=== PATIENT | female | born 1930 | race Caucasian/White ===

== ENCOUNTER 2016-09-04 15:44 | Outpatient (CLI) | payer MEDICARE, OTHER | END 2016-09-04 15:45 | disposition critical access hospital (66) | DX: R06.02 Shortness of breath (principal) | CPT/HCPCS: A0425; A0427 ==

== ENCOUNTER 2016-09-04 16:01 | Emergency (ER) | payer MEDICARE, OTHER ==
[2016-09-04] MEDS ORDERED: FUROSEMIDE 20 MG TABLET PO STA (17:19)
[2016-09-04] MEDS ORDERED: FUROSEMIDE 20 MG TABLET ONE (17:22)
== END 2016-09-04 17:46 | disposition home or self-care (01) ==
DX: I11.0 Hypertensive heart disease with heart failure (principal); I50.9 Heart failure, unspecified; I48.2 Chronic atrial fibrillation; Z79.01 Long term (current) use of anticoagulants; Z79.82 Long term (current) use of aspirin; I87.8 Other specified disorders of veins; I25.2 Old myocardial infarction; Z95.1 Presence of aortocoronary bypass graft; E11.9 Type 2 diabetes mellitus without complications; J44.9 Chronic obstructive pulmonary disease, unspecified
CPT/HCPCS: 36415; 71010; 80053; 83690; 83880; 84484; 85025; 85610; 93005; 93010; 99284; A9270

== ENCOUNTER 2016-10-06 14:29 | Outpatient (CLI) | payer MEDICARE, OTHER | END 2016-10-06 14:30 | disposition home or self-care (01) | DX: I50.9 Heart failure, unspecified (principal); I48.2 Chronic atrial fibrillation ==

== ENCOUNTER 2016-10-07 14:59 | Outpatient (CLI) | payer MEDICARE, OTHER | END 2016-10-07 15:00 | disposition short-term general hospital (02) | DX: R06.02 Shortness of breath (principal); R11.0 Nausea | CPT/HCPCS: A0425; A0427; A0888 ==

== ENCOUNTER 2016-12-10 20:48 | Outpatient (CLI) | payer MEDICARE, OTHER | END 2016-12-10 20:49 | disposition short-term general hospital (02) | LOC: EMS 20:48 | PROVIDERS: ATTEND Surgery | DX: R11.2 Nausea with vomiting, unspecified (principal); R19.7 Diarrhea, unspecified | CPT/HCPCS: A0425; A0429 ==

== ENCOUNTER 2016-12-22 10:39 | Outpatient (CLI) | payer MEDICARE, OTHER ==
--- NOTE | 2016-12-23 10:24 | XRAY Report ---
CHEST PA AND LATERAL: 12/22/2016 CLINICAL HISTORY: Congestive heart failure. FINDINGS: Sternal wire sutures are noted. Anterior spurring is seen in the thoracic spine with mild kyphosis. Mild cardiomegaly is noted with vascular calcification in the aortic arch. Mediastinum is not widened. Because of patient's kyphosis, patient's chin overlies a portion of the superior mediastinum and medial aspect of each lung apex. Bilateral pleural effusions are noted. Right pleural effusion is of small to moderate size. The left pleural effusion is a small pleural effusion. No significant interstitial edema is noted in the lung bowman. As compared to preceding exam dated 09/04/2016, the amount of pleural fluid present appears increased bilaterally. The pleural effusions most likely represent congestive heart failure. Secondary considerations would be renal disease or collagen vascular disease. IMPRESSION: MODERATE DEGREE OF CARDIOMEGALY WITH STERNAL WIRE SUTURES. MODERATE SIZE RIGHT PLEURAL EFFUSION AND A SMALL LEFT PLEURAL EFFUSION IS NOTED. THESE PLEURAL EFFUSIONS HAVE INCREASED SINCE 09/04/2016 AND MOST LIKELY ARE RESULT OF CONGESTIVE HEART FAILURE. ADDENDUM FINDINGS: The patient's recent chest x-ray from [facility] in [place], [place], dated 12/11/2016 has been obtained for comparison with present study. No dramatic change is detected between the present exam and the exam taken at [facility], considering the difference in technique. The exam done at [facility] was an AP portable upright chest versus a PA upright chest today. On the AP portable chest from [facility], the patient showed a moderate size right pleural effusion and a small left pleural effusion. The patient's pleural effusions appear mildly accentuated today as compared to the preceding exam. This accentuation, however, is probably related to a difference in technique rather than a real change. Heart size remains unchanged with a moderate degree of cardiomegaly still noted. This addendum is being faxed to Dr. Huang on 12/22/2016 at 1:35 p.m. JOB #: [id number] EXT JOB #: [id number] [facility] SHOREJeffery
== END 2016-12-22 10:40 | disposition home or self-care (01) ==
LOC: DI 10:39
PROVIDERS: ATTEND Internal Medicine
DX: I50.9 Heart failure, unspecified (principal); I48.91 Unspecified atrial fibrillation; Z79.01 Long term (current) use of anticoagulants; I51.7 Cardiomegaly; J90 Pleural effusion, not elsewhere classified
CPT/HCPCS: 71020; 85610

== ENCOUNTER 2017-01-09 15:40 | Outpatient (CLI) | payer MEDICARE, OTHER | END 2017-01-09 15:41 | disposition short-term general hospital (02) | LOC: EMS 15:40 | PROVIDERS: ATTEND Surgery | DX: R19.7 Diarrhea, unspecified (principal) | CPT/HCPCS: A0425; A0429; A0888 ==

== ENCOUNTER 2017-02-04 11:12 | Outpatient (CLI) | payer MEDICARE, OTHER | END 2017-02-04 11:13 | disposition critical access hospital (66) | LOC: EMS 11:12 | PROVIDERS: ATTEND Surgery | DX: R40.20 Unspecified coma (principal); R06.00 Dyspnea, unspecified | CPT/HCPCS: A0425; A0427 ==

== ENCOUNTER 2017-02-04 11:29 | Inpatient (IN) | payer MEDICARE, OTHER ==
[2017-02-04] MEDS ORDERED: GLUCAGON 1 MG/ML VIAL IVP ONE (11:36)
[2017-02-04] MEDS ORDERED: SODIUM CHLORIDE 0.9% 1,000 ML IV ONE (11:36)
[2017-02-04] MEDS ORDERED: CALCIUM CHLORIDE ABBOJECT 1000MG/10 ML SYRINGE IVP ONE (11:38)
[2017-02-04] MEDS ORDERED: CALCIUM CHLORIDE ABBOJECT 1000MG/10 ML SYRINGE ONE (11:40)
[2017-02-04] MEDS ORDERED: GLUCAGON 1 MG/ML VIAL ONE (11:40)
[2017-02-04] MEDS ORDERED: CALCIUM GLUCONATE 1000 MG/10 ML VIAL ONE (11:40)
[2017-02-04] MEDS ORDERED: SODIUM BICARBONATE ABBOJECT 50 MEQ/50 ML SYRINGE IVP ONE (11:42)
[2017-02-04] MEDS ORDERED: SODIUM BICARBONATE ABBOJECT 50 MEQ/50 ML SYRINGE ONE (11:46)
[2017-02-04] MEDS ORDERED: SODIUM CHLORIDE INHALATION 3 ML NEB ONE (11:49)
[2017-02-04] MEDS ORDERED: LEVALBUTEROL 1.25 MG INH ONE (11:49)
[2017-02-04] MEDS ORDERED: DEXTROSE 50% ABBOJECT 25 GM/50 ML SYRINGE IVP ONE (11:53)
[2017-02-04] MEDS ORDERED: SODIUM CHLORIDE FLUSH 0.9% 10 ML SYRINGE IVP ONE ×2 (11:54→13:26)
[2017-02-04] MEDS ORDERED: DEXTROSE 50% ABBOJECT 25 GM/50 ML SYRINGE ONE (11:54)
[2017-02-04] MEDS ORDERED: INSULIN REGULAR HUMAN 100 UNIT/1 ML 10 ML MDV ONE (11:54)
[2017-02-04] MEDS ORDERED: INSULIN REGULAR HUMAN 100 UNIT/1 ML 10 ML MDV IVP STA (11:54)
--- NOTE | 2017-02-04 11:57 | ED Physician Documentation ---
History of Present Illness - Stated complaint Stated Complaint: SOA/SYNCOPE - Chief complaint Chief Complaint: Resp - Additonal information Additional information: She is a 86-year-old female in assisted living center. EMS got called out for dyspnea and arrived to find this patient in distress. Her blood glucose was low in the 40s her heart rate was also in the 40s and she appeared to be in respiratory distress. She had altered mental status at that time and appeared to be obviously hypo perfusing in appearance. They give her IV dextrose with some improvement in her mentation. She was also given IV fluids as a bolus and was placed on subcutaneous pacing. The patient here is arousable and is not complaining of anything. She is lethargic and demonstrates moving her arms and legs equally. She does appear to be hypoperfusing here and is bradycardic. We have continued the pacemaker. Looking at her medications she is on double dexter blocking medications with diltiazem and metoprolol. She is also on Coumadin for atrial fibrillation. The patient denies a headache, chest pain, shortness of breath or any other complaints although her mentation is somewhat depressed. Review of systems: For pertinent positive and negatives in the review of systems please see the history of present illness, otherwise all other systems have been reviewed and are negative. Dragon disclaimer: Parts of this medical record were created using voice recognition technology. Because of the inherent limitations of this system, occasional same sounding word substitutions do occur and persist despite proofreading. Please read the document for context. PD PAST MEDICAL HISTORY - Past Medical History Cardiovascular: Congestive heart failure, Hypertension, [place], Atrial fibrillation Respiratory: COPD, Pneumonia, Sleep apnea, CPAP use Neuro: None Endocrine/Autoimmune: Type 2 diabetes GI: GI bleed, C.difficile : Frequency HEENT: None Psych: None Musculoskeletal: Osteoarthritis Derm: Herpes zoster, Psoriasis - Past Surgical History Past Surgical History: Yes Ortho: Other /INTERNET WE[employer]STER: Hysterectomy Cardiovascular: CABG HEENT: Cataracts - Present Medications Home Medications: Ambulatory Orders Medication Instructions Recorded Confirmed Aspirin [Children's Aspirin] 81 mg PO DAILY 12/25/14 02/04/17 Furosemide [Lasix] 40 mg PO DAILY 12/25/14 02/04/17 Metoprolol Tartrate 200 mg PO BID 12/25/14 02/04/17 Potassium Chloride 20 meq PO BID 12/25/14 02/04/17 Warfarin [Coumadin] 1 mg PO QPM 12/25/14 02/04/17 Diltiazem HCl [Diltiazem ER] 240 mg ORAL DAILY 09/04/16 02/04/17 Fluticasone/Salmeterol [Advair 1 puffs BID 09/04/16 02/04/17 250-50 Diskus] Tiotropium [place] [Spiriva] 2 inhaler ORAL DAILY 09/04/16 02/04/17 - Allergies Allergies/Adverse Reactions: Allergies Allergy/AdvReac Type Severity Reaction Status Date / Time cephalexin Allergy Unknown Verified 02/04/17 11:58 hydrocodone bitartrate * AdvReac Unknown Verified 02/04/17 11:58 [From Vicodin] NSAIDS (Non-Steroidal AdvReac Unknown Verified 02/04/17 11:58 Anti-Inflamma Penicillins AdvReac Unknown Verified 02/04/17 11:58 zolpidem AdvReac Hallucinati Verified 02/04/17 11:58 ons - Social History Does the pt smoke?: No Smoking Status: Unknown if ever smoked Does the pt drink ETOH?: No Does the pt have substance abuse?: No - Immunizations Immunizations are current?: Yes - POLST Patient has POLST: Yes PD ED PE NORMAL - Vitals Vital signs reviewed: Yes - General General: Other (Patient is lethargic and dusky in appearance. She is arousable to stimulation and her speech is nearly unintelligible pupils are 4 mm and equal bilaterally. There is no evidence of any traumatic injury.) - Neck Neck: Supple, no meningeal sign - Cardiac Cardiac: Other (Paced rhythm at approximately 7B beats per minute) - Respiratory Respiratory: No respiratory distress, Clear bilaterally, Other - Abdomen Abdomen: Normal bowel sounds, Soft, Non tender, Non distended - Back Back: No CVA TTP - Derm Derm: Normal color, Other - Extremities Extremities: Other (Dusky hands and feet, mild edema bilateral lower extremities ) PD ED PE EXPANDED - General General: Lethargic Results - Vitals Vitals: Vital Signs - 24 hr 02/04/17 02/04/17 02/04/17 11:30 11:39 11:52 Temperature 35.6 C L Heart Rate 70 78 75 Respiratory 16 20 23 Rate Blood Pressure 89/66 L 75/47 L 91/57 L O2 Saturation 85 L 90 L 99 Oxygen O2 Source Non-rebreather mask - Labs Labs: Laboratory Tests 02/04/17 02/04/17 02/04/17 11:40 11:40 11:40 WBC 5.7 RBC 3.51 L Hgb 9.4 L Hct 31.3 L MCV 89.1 MCH 26.7 L MCHC 29.9 L RDW 20.6 H Plt Count 196 MPV 8.4 Neut # 4.1 Lymph # 0.7 L [place] # 0.7 Eos # 0.0 Baso # 0.0 Absolute Nucleated RBC 0.02 Nucleated RBCs 0.4 PT 26.5 H INR 2.3 H Sodium 137 Potassium 7.4 H* Chloride 103 Carbon Dioxide 21 Anion Gap 13.0 BUN 57 H Creatinine 2.1 H Estimated GFR (MDRD) 22 L Glucose 84 Calcium 10.4 H Total Bilirubin 1.3 H AST 49 H ALT 21 Alkaline Phosphatase 75 Troponin I B-Natriuretic Peptide Total Protein 5.4 L Albumin 2.4 L Globulin 3.0 Albumin/Globulin Ratio 0.8 L Lipase 39 Urine Color Urine Clarity Urine pH Ur Specific [place] Urine Protein Urine Glucose (UA) Urine Ketones Urine Occult Blood Urine Nitrite Urine Bilirubin Urine Urobilinogen Ur Leukocyte Esterase Ur Microscopic Review Urine Culture Comments 02/04/17 02/04/17 02/04/17 11:40 11:40 13:21 WBC RBC Hgb Hct MCV MCH MCHC RDW Plt Count MPV Neut # Lymph # [place] # Eos # Baso # Absolute Nucleated RBC Nucleated RBCs PT INR Sodium Potassium Chloride Carbon Dioxide Anion Gap BUN Creatinine Estimated GFR (MDRD) Glucose Calcium Total Bilirubin AST ALT Alkaline Phosphatase Troponin I < 0.04 B-Natriuretic Peptide 4122 H Total Protein Albumin Globulin Albumin/Globulin Ratio Lipase Urine Color YELLOW Urine Clarity CLOUDY Urine pH 6.5 Ur Specific [place] 1.015 Urine Protein 100 H Urine Glucose (UA) NEGATIVE Urine Ketones NEGATIVE Urine Occult Blood LARGE H Urine Nitrite NEGATIVE Urine Bilirubin NEGATIVE Urine Urobilinogen 0.2 (NORMAL) Ur Leukocyte Esterase MODERATE H Ur Microscopic Review NOT INDICATED Urine Culture Comments INDICATED PD MEDICAL DECISION MAKING - ED course Complexity details: reviewed old records, reviewed results, re-evaluated patient , considered differential, d/w patient, d/w family ED course: Patient is a pleasant 86-year-old female with history of Parkinson's, hypertension and arthritis. She had a near syncopal episode today that occurred while she is trying to put on her compression stockings and later got worse with defecation. She has a history of this happening several times in the past they have never been able to find any clear-cut diagnosis. She does not have any history of cerebrovascular, cardiovascular, or peripheral vascular disease. Here she has a normal cardiac pulmonary and neurologic examination. EKG shows normal sinus rhythm with normal PA QRS QT interval there is no ST elevation depression T-wave inversion. Routine labs including urinalysis were sent and are normal. She is given 1 L of normal saline and feels much better. She ambulated without any difficulty and at this time I believe she is suitable to be discharged home with follow-up with her physician and recommendations to return should she worsen. Disposition: To home Clinical impression: 1. Near syncope, etiology unclear, history of same
[2017-02-04 12:04] LABS: INR 2.3 (0.8-1.2); PT - PROTHROMBIN TIME 26.5 secs (9.9-12.6)
[2017-02-04 12:18] LABS: ALBUMIN/GLOBULIN RATIO 0.8 (1.0-2.2); BILIRUBIN,TOTAL 1.3 mg/dL (0.2-1.0); CALCIUM 10.4 mg/dL (8.5-10.3); CREATININE 2.1 mg/dL (0.4-1.0); TOTAL PROTEIN 5.4 g/dL (6.7-8.2)
[2017-02-04 12:19] LABS: POTASSIUM 7.4 mmol/L (3.5-5.0)
[2017-02-04 12:21] LABS: BASOPHILS % (AUTO) 0.8 %; EOSINOPHILS % (AUTO) 0.3 %; HCT - HEMATOCRIT 31.3 % (37.0-47.0); HGB - HEMOGLOBIN 9.4 g/dL (12.0-16.0); LYMPHOCYTES # (AUTO) 0.7 10^3/uL (1.5-3.5); MEAN CORPUSCULAR HEMOGLOBIN 26.7 pg (27.0-31.0); MEAN CORPUSCULAR HGB CONC 29.9 g/dL (32.0-36.0); MEAN CORPUSCULAR VOLUME 89.1 fL (81.0-99.0); MEAN PLATELET VOLUME 8.4 fL (7.9-10.8); MONOCYTES # (AUTO) 0.7 10^3/uL (0.0-1.0); MONOCYTES % (AUTO) 13.1 %; NEUTROPHILS # (AUTO) 4.1 10^3/uL (1.5-6.6); NEUTROPHILS % (AUTO) 72.8 %; NUCLEATED RED BLOOD CELLS AUTO 0.4 /100WBC; RED BLOOD COUNT 3.51 10^6/uL (4.20-5.40); RED CELL DISTRIBUTION WIDTH 20.6 % (12.0-15.0); UNCORRECTED WHITE BLOOD COUNT 5.7 x10^3/uL; WHITE BLOOD COUNT 5.7 x10^3/uL (4.8-10.8)
--- NOTE | 2017-02-04 13:05 | CT Preliminary Report ---
Exam: CT Head W/O IMPRESSION: 1. Negative for intracranial hemorrhage and mass effect. 2. 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 Limited by motion artifact. [facility] SITE ID: [id number]
--- NOTE | 2017-02-04 13:08 | CT Report ---
EXAM: CT HEAD EXAM DATE: 02/04/2017 12:12 PM. CLINICAL HISTORY: AMS on coumadin. COMPARISON: None. TECHNIQUE: Multiaxial CT images were obtained from the foramen magnum to the vertex. IV contrast: Non e. Reformats: Coronal. In accordance with CT protocol optimization, one or more of the following dose reduction techniques w ere utilized for this exam: automated exposure control, adjustment of mA and/or KV based on patient s ize, or use of iterative reconstructive technique. FINDINGS: Parenchyma: There is moderate to severe patient motion artifact degrading image quality. Negative for intracranial acute hemorrhage. No midline shift. There is a probable area of encephalomalacia in the right occipital lobe. Extraaxial Spaces: No abnormal subdural or epidural fluid collection. Ventricles: Symmetric in size and normal in location. Sinuses: Imaged paranasal sinuses, orbits, and mastoids show no significant abnormality. Bones: No evidence of fracture or calvarial defect. Other: None. IMPRESSION: 1. Negative for intracranial hemorrhage and mass effect. 2. 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 Limited by motion artifact. [facility] Referring Provider Line: [phone] SITE ID: [id number]
[2017-02-04] MEDS ORDERED: ONDANSETRON 4 MG/2 ML VIAL IVP STA (13:18)
--- NOTE | 2017-02-04 13:21 | XRAY Preliminary Report ---
Exam: XR Chest 1 View IMPRESSION: Congestive heart failure with right greater than left pleural effusions. Cannot exclude c oexisting infection. [facility] SITE ID: [id number]
--- NOTE | 2017-02-04 13:24 | XRAY Report ---
EXAM: CHEST RADIOGRAPHY EXAM DATE: 02/04/2017 12:53 PM. CLINICAL HISTORY: Dyspnea. COMPARISON: 12/22/2016. TECHNIQUE: 1 view. FINDINGS: Lungs/Pleura: Right greater than left pleural effusions. Interstitial edema. No pneumothorax. Mediastinum: Cardiomegaly. Other: Prior sternotomy. IMPRESSION: Congestive heart failure with right greater than left pleural effusions. Cannot exclude c oexisting infection. [facility] Referring Provider Line: [phone] SITE ID: [id number]
[2017-02-04] MEDS ORDERED: ONDANSETRON 4 MG/2 ML VIAL ONE (13:26)
[2017-02-04 13:35] LABS: BILIRUBIN,URINE NEGATIVE (NEGATIVE); PH,URINE 6.5 PH (5.0-7.5)
[2017-02-04 13:37] LABS: UA CHARGE (STRIP ONLY) YES; UR CULTURE IF IND INDICATED
[2017-02-04 13:59] LABS: ALBUMIN/GLOBULIN RATIO 0.8 (1.0-2.2); BILIRUBIN,TOTAL 1.3 mg/dL (0.2-1.0); CALCIUM 8.6 mg/dL (8.5-10.3); CREATININE 2.1 mg/dL (0.4-1.0); POTASSIUM 5.8 mmol/L (3.5-5.0); TOTAL PROTEIN 5.6 g/dL (6.7-8.2)
[2017-02-04] MEDS ORDERED: ACETAMINOPHEN 325 MG TABLET PO PRN (14:37)
[2017-02-04] MEDS ORDERED: IPRATROPIUM 0.2 MG/ML NEB INH PRN (14:37)
[2017-02-04] MEDS ORDERED: ALBUTEROL NEB 2.5 MG/3 ML INH PRN (14:37)
[2017-02-04] MEDS ORDERED: ONDANSETRON 4 MG/2 ML VIAL IVP PRN (14:37)
[2017-02-04] MEDS ORDERED: LORazepam 2 MG/ML SYRINGE IVP PRN (14:37)
[2017-02-04] MEDS ORDERED: SODIUM CHLORIDE 0.9% 1,000 ML IV SCH (15:00)
[2017-02-04] MEDS ORDERED: FUROSEMIDE 20 MG/2 ML VIAL IVP SCH (16:00)
[2017-02-04] MEDS: PANTOPRAZOLE 40 MG VIAL IVP SCH (16:42)
[2017-02-04] MEDS: HYDROmorphone 1 MG/ML SYRINGE IVP PRN (17:43)
--- NOTE | 2017-02-04 17:49 | HISTORY & PHYSICAL EXAMINATION ---
DATE OF ADMISSION: 02/04/2017 PRIMARY CARE PHYSICIAN: German Huang CHIEF COMPLAINT: Cardiac arrest. IDENTIFYING INFORMATION: The patient is an 86-year-old female who is now looking around and a word or 2 through her BiPAP mask, but her history is largely given by her daughter, Ban Locke, who is present at bedside, but did not witnessed event. Additional information is obtained in the hand-off from the emergency department physician, Dr. Malloy. There is also information obtained on personal review of past medical records, which was summarized below. In addition there is the patient examination used in evaluation of this person and preparation of this document. HISTORY OF PRESENT ILLNESS: The daughter says that the patient has been getting worse with more fatigue. She was diagnosed with a urinary tract infection and was supposed to be on an antibiotic after the culture was back, but she said this was about 2 weeks ago, and she has been noting that she is fatigued more and more having a difficult time even getting out of a chair or off a toilet. The patient was then found down by the staff at [facility] where she lives and the staff did not feel like she had a pulse and started CPR. EMS was called. Had an agonal rhythm, placed a pacemaker on the patient and was return of rhythm. The patient was bag masked, brought into the hospital, placed on oxygen by nonrebreather and subsequently BiPAP with successful return of blood pressure in addition to pulse. The patient was found on initial lab in the emergency department to have very elevated potassium. She had already received the presumed diagnosis of hyperkalemia, insulin, Xopenex, calcium. REVIEW OF SYSTEMS: Unobtainable from the patient. Possible urinary tract infection and decreased appetite are all that can be obtained at this time. PAST MEDICAL HISTORY REMARKABLE FOR 1. Chronic obstructive pulmonary disease, not on oxygen at present. 2. Diabetes type 2. 3. Hypertension. 4. Hyperlipidemia. 5. CHF. 6. GERD. 7. Atrial fibrillation. 8. CAD. 9. Chronic kidney disease. PAST SURGERIES: She has had CABG May 2013, cataract surgery x2, hysterectomy, ankle surgery. ALLERGIES 1. CEPHALEXIN. 2. HYDROCODONE. 3. NSAIDS. 4. PENICILLIN. 5. ZOLPIDEM. CURRENT MEDICATIONS 1. Aspirin 81 mg a day. 2. Furosemide 40 mg a day. 3. Metoprolol 200 mg b.i.d. 4. Potassium 20 mEq b.i.d. 5. Coumadin 1 mg q. p.m. 6. Diltiazem 240 mg a day. 7. Advair 250/50 one puff twice a day. 8. Tiotropium inhaler daily. PERSONAL AND SOCIAL HISTORY: The patient was born in [place], [place]. When she was in an elementary school, her dad was run over by a truck, killed, and the family moved out to [facility]. She has 6 kids, she never worked much outside the house. She smoked a pack a day for many years, in later years, half a pack a day, quitting in . No heavy use of alcohol. No illicit drugs. FAMILY HISTORY: There is heart disease in the family and diabetes in the family. PHYSICAL EXAMINATION VITAL SIGNS: 35.6, 70, 69/66, O2 saturation 99% on nonrebreather. EYES: EOM within normal limits, PERRL, nonicteric. MOUTH AND THROAT: Poorly seen because of a BiPAP mask. NECK: No lymphadenopathy, no thyromegaly. CHEST: There are rales bilaterally. Rhonchi. Decreased breath sounds on the right greater than left. Chest x-ray shows pleural effusion, right greater than left, undetermined if there is a pneumonia and a pleural effusion. ABDOMEN: Soft, nontender. RECTAL/GENITAL: Exam not done. BREASTS: Exam not done. No bruising at this point. CHEST WALL: The patient has a scar from previous CABG. EXTREMITIES: She has stasis dermatitis, some purpura, a little blood blister which appears to open and draining rather copious amounts of blood on a frequent basis. NEUROLOGICAL: The patient is arousable. Speech is mostly unintelligible. DIAGNOSTICS: She had a head CT shows no mass, no bleed. The patient's chest x- ray already discussed. LABORATORY DATA: Initial sodium 137, potassium 7.4, chloride 103, CO2 of 21, BUN 57, creatinine 0.1, glucose 84, calcium 10.4. The patient's troponin less than 0.04, BNP 4122, albumin 2.5. The patient's repeat after therapeutic interventions in the emergency department: Sodium 136, potassium 5.8, chloride 105, CO2 of 19, BUN 57, creatinine 2.1, glucose 118, calcium 8.6, bilirubin 1.3 , AST 230, ALT 109, alkaline phosphatase 85. DISCUSSION/DECISION MAKING: The patient has been off the transvenous pacemaker at the time of this examination. SUMMARY: The patient is an 86-year-old female who was found down and found to be bradycardic, although no pulse was appreciated initially. The patient was given glucose without response by EMS, transvenous pacemaker was initiated and continued in the emergency department. The patient had the pacemaker discontinued for a short period of time with a wide complex rhythm. The patient was treated for presumptive potassium and had response with improved pulse, blood pressure. The patient has ongoing history of coronary artery disease, peripheral vascular disease, diabetes, COPD, hypertension, hypercholesterolemia , atrial fibrillation. DIAGNOSES 1. Cardiac arrest and resuscitation. 2. Acute congestive heart failure on chronic congestive heart failure. 3. Acute respiratory failure. 4. Critical hyperkalemia. 5. Chronic kidney disease with suspected acute kidney injury. 6. Diabetes, suspect uncontrolled. 7. Atrial fibrillation. 8. Chronic obstructive pulmonary disease. DISCUSSION/DECISION MAKING 1. The patient's cardiac arrest was resuscitated with short interval of CPR followed by a temporary external pacemaker with improvement and treatment for hyperkalemia. 2. The patient's acute CHF and chronic CHF. She has evidence of pleural effusions which she had 2 weeks ago, likely worsened. EF was supposedly 60% to 65%, but she had right heart failure, pulmonary hypertension, mitral regurgitation on her echo back. The patient will be restarted on medications for CHF once her pressure improves. Heart rates remained stable. The patient's acute respiratory failure will be treated with BiPAP. Does not appear to be secondary to the COPD so steroids not used at this time. However, she will be given beta agonists as needed. 4. Critical hyperkalemia, which will be further treated with Lasix and Kayexalate if the potassium increases to 6.0 or more. 5. Chronic kidney disease and suspected acute kidney function given the period of hypotension. The creatinine and BUN will be monitored and further interventions as deemed necessary. 6. Diabetes. The patient will be on the Carb 4 diet and insulin sliding scale as needed. 7. Chronic obstructive pulmonary disease is currently treated with a beta agonists as noted above, consideration for steroids. 8. The suspected pneumonia. Discussion and decision making for that same diagnosis is to place the patient on empiric antibiotics, Levaquin will be used since she is allergic to both PENICILLINS and CEPHALOSPORINS. HOSPITAL ISSUES 1. CODE STATUS: She is DNR. Discussed at length with the daughter who says she has a living will. She is also not to be intubated and in fact, she wants to come off the BiPAP and stay off the BiPAP, this will also be respected. 2. Venous thromboembolism. The patient is adequately anticoagulated and will have sequential compression devices for adequate placement. 3. Diet will be Carb 4 choice as tolerated. 4. Activity which will be bed rest at present time with increase if improvement occurs. 5. Tubes and lines show a Patel and an IV. Possibly a second IV if needed. 6. Hospital status which is evident, the patient is critically ill and expect to need more than 2 nights to determine how the diagnostic purposes and therapeutic interventions will change her present critical status. 7. Expected length of stay is 4 nights. 8. [facility], but is likely to end up in stent placement or even . JOB #: [id number] EXT JOB #:[id number] NANCY
[2017-02-04] MEDS: SODIUM CHLORIDE 0.9% 1,000 ML IV SCH (19:00)
--- NOTE | 2017-02-04 19:38 | XRAY Report ---
EXAM: CHEST RADIOGRAPHY EXAM DATE: 02/04/2017 07:04 PM. CLINICAL HISTORY: Line placement left internal jugular COMPARISON: Chest 02-04-17. TECHNIQUE: 1 view. FINDINGS: Left IJ central line with the tip in the IVC below the IVC right atrial junction. Pulling this back b y [address] this at the lower SVC. No pneumothorax. Moderate right pleural effusion, mildly decreased. Small left pleural effusion, unchanged. Mild to mo derate bilateral airspace disease right greater than left, mildly decreased on the right. IMPRESSION: Left IJ central line with the tip in the inferior vena cava below the IVC right atrial ju nction. Pulling this back by [address] this at the lower superior vena cava. No pneumothorax. Moderate right pleural effusion, mildly decreased. Small left pleural effusion, unchanged. Mild to mo derate bilateral airspace disease right greater than left, mildly decreased on the right. [facility] The above findings were discussed with Nurse Taya by Dr. Sona Kumar at 19:34 hrs on 02/04/17. Referring Provider Line: [phone] SITE ID: [id number]
[2017-02-04] MEDS ORDERED: LORazepam 2 MG/ML SYRINGE IVP SCH (20:00)
[2017-02-04] MEDS ORDERED: LORazepam 2 MG/ML SYRINGE ONE (20:11)
[2017-02-04 20:51] LABS: CALCIUM 8.4 mg/dL (8.5-10.3); CREATININE 2.1 mg/dL (0.4-1.0); POTASSIUM 5.9 mmol/L (3.5-5.0)
[2017-02-04] MEDS ORDERED: WARFARIN 1 MG TABLET PO SCH (21:00)
--- NOTE | 2017-02-04 21:14 | XRAY Preliminary Report ---
Exam: XR Chest 1 View IMPRESSION: Interval repositioning of left internal jugular line with tip now at the cavoatrial junct ion. [facility] SITE ID: [id number]
--- NOTE | 2017-02-04 21:17 | XRAY Report ---
EXAM: CHEST RADIOGRAPHY EXAM DATE: 02/04/2017 08:43 PM. CLINICAL HISTORY: Central venous line pulled back COMPARISON: Chest x-ray 02/04/2017 at 1906. TECHNIQUE: 1 view. FINDINGS: Lungs/Pleura: Trace left and small right pleural effusions with bibasilar airspace disease. Pulmonary vascular distention. Mediastinum: Cardiomegaly with left internal jugular line with tip at the cavoatrial junction. Other: Status post median sternotomy. IMPRESSION: Interval repositioning of left internal jugular line with tip now at the cavoatrial junct ion. [facility] Referring Provider Line: [phone] SITE ID: [id number]
[2017-02-04] MEDS: CHLORHEXIDINE GLUCONATE 15 ML UDC PO SCH (22:41)
[2017-02-04] MEDS: SODIUM CHLORIDE FLUSH 0.9% 10 ML SYRINGE IVP SCH ×2 (22:54→22:55)
[2017-02-05] MEDS: HYDROmorphone 1 MG/ML SYRINGE IVP PRN ×3 (04:39→16:10)
[2017-02-05] MEDS: SODIUM CHLORIDE FLUSH 0.9% 10 ML SYRINGE IVP PRN ×2 (05:38→05:39)
--- NOTE | 2017-02-05 05:41 | XRAY Preliminary Report ---
Exam: XR Abdomen 1 View IMPRESSION: 1. Grossly normal gas pattern. 2. Calcified stones in the gallbladder. [facility] SITE ID: [id number]
--- NOTE | 2017-02-05 05:44 | XRAY Preliminary Report ---
Exam: XR Chest 1 View IMPRESSION: 1. Cardiomegaly and postoperative changes with bilateral pleural effusions and associated bibasilar a telectasis or consolidation. 2. Suspect pulmonary edema. [facility] SITE ID: [id number]
--- NOTE | 2017-02-05 05:44 | XRAY Report ---
EXAM: ABDOMEN RADIOGRAPHY EXAM DATE: 02/05/2017 05:15 AM. CLINICAL HISTORY: Increased pain. COMPARISON: None. TECHNIQUE: 1 view. FINDINGS: Bowel Gas Pattern: Grossly unremarkable. Other: Bilateral pulmonary opacities and pleural effusions. Calcified stones in the gallbladder. Kenia re degenerative changes in the right hip. IMPRESSION: 1. Grossly normal gas pattern. 2. Calcified stones in the gallbladder. [facility] Referring Provider Line: [phone] SITE ID: [id number]
--- NOTE | 2017-02-05 05:46 | XRAY Report ---
EXAM: CHEST RADIOGRAPHY EXAM DATE: 02/05/2017 05:17 AM. CLINICAL HISTORY: BIPAP. COMPARISON: 02/04/2017. TECHNIQUE: 1 view. FINDINGS: Lungs/Pleura: Moderate right and small left pleural effusions with bibasilar atelectasis or consolida tion. Pulmonary opacities elsewhere in both lungs probably due to pulmonary edema. No pneumothorax se en. Mediastinum: Mild cardiomegaly. Other: Median sternotomy. IMPRESSION: 1. Cardiomegaly and postoperative changes with bilateral pleural effusions and associated bibasilar a telectasis or consolidation. 2. Suspect pulmonary edema. [facility] Referring Provider Line: [phone] SITE ID: [id number]
[2017-02-05 06:01] LABS: BASOPHILS % (AUTO) 0.1 %; HCT - HEMATOCRIT 35.3 % (37.0-47.0); HGB - HEMOGLOBIN 10.7 g/dL (12.0-16.0); LYMPHOCYTES # (AUTO) 0.2 10^3/uL (1.5-3.5); LYMPHOCYTES % (AUTO) 2.8 %; MEAN CORPUSCULAR HEMOGLOBIN 26.6 pg (27.0-31.0); MEAN CORPUSCULAR HGB CONC 30.4 g/dL (32.0-36.0); MEAN CORPUSCULAR VOLUME 87.5 fL (81.0-99.0); MEAN PLATELET VOLUME 8.4 fL (7.9-10.8); MONOCYTES # (AUTO) 0.7 10^3/uL (0.0-1.0); MONOCYTES % (AUTO) 9.2 %; NEUTROPHILS # (AUTO) 6.7 10^3/uL (1.5-6.6); NEUTROPHILS % (AUTO) 87.9 %; NUCLEATED RED BLOOD CELLS AUTO 0.4 /100WBC; RED BLOOD COUNT 4.03 10^6/uL (4.20-5.40); UNCORRECTED WHITE BLOOD COUNT 7.7 x10^3/uL; WHITE BLOOD COUNT 7.7 x10^3/uL (4.8-10.8)
[2017-02-05 06:18] LABS: INR 2.6 (0.8-1.2); PT - PROTHROMBIN TIME 29.6 secs (9.9-12.6)
[2017-02-05 06:22] LABS: BILIRUBIN,TOTAL 1.4 mg/dL (0.2-1.0); CALCIUM 8.6 mg/dL (8.5-10.3); CREATININE 2.2 mg/dL (0.4-1.0); PHOSPHORUS 4.5 mg/dL (2.5-4.6); POTASSIUM 6.3 mmol/L (3.5-5.0); TOTAL PROTEIN 5.7 g/dL (6.7-8.2)
[2017-02-05] MEDS ORDERED: SODIUM POLYSTYRENE SULFONATE 15 GM/60 ML BOTTLE PR ONE ×3 (06:31→15:30)
[2017-02-05] MEDS: FUROSEMIDE 20 MG/2 ML VIAL IVP SCH ×2 (07:42→13:29)
[2017-02-05] MEDS: PANTOPRAZOLE 40 MG VIAL IVP SCH (07:42)
[2017-02-05] MEDS: SODIUM CHLORIDE 0.9% 1,000 ML IV SCH (07:42)
[2017-02-05] MEDS ORDERED: DEXTROSE 50% ABBOJECT 25 GM/50 ML SYRINGE ONE (07:54)
[2017-02-05] MEDS ORDERED: ASPIRIN CHEW 81 MG TABLET PO SCH (09:00)
[2017-02-05] MEDS ORDERED: DEXTROSE 50% ABBOJECT 25 GM/50 ML SYRINGE IVP ONE (09:19)
--- NOTE | 2017-02-05 09:27 | PROVIDER PROGRESS NOTE ---
Assessment/Plan - Problem List (1) Congestive heart failure Assessment/Plan: She has acute on chronic respiratory failure. In this case it appears that it is R ht that has lead to L and R failure and that has lead to resp failure. (2) Acute respiratory failure with hypoxemia Assessment/Plan: She is still on BIPAAP. she has shock liver and with min UO ( 8cc) it is clear that the Unchanged Creatinine is falsely low and will progress tomorrow. his woman is critically ill with multi organ failure and her prognosis is grim. Spoke with the daughter today and she will come in and talk with her mom and decide on the possible withdrawal of resusicitation support. and transition to comfort care - Current Meds Current Meds: Current Medications Generic Name Dose Route Start Last Admin Trade Name Freq PRN Reason Stop Dose Admin Albuterol 2.5 mg 02/04/17 14:37 02/04/17 20:45 INH 2.5 mg Q4HR PRN Administration Wheezing Aspirin 81 mg 02/05/17 09:00 02/05/17 08:10 [facility] Aspirin PO 81 mg DAILY TUNDE Administration Chlorhexidine Gluconate 15 ml 02/04/17 21:00 02/04/17 22:41 Peridex PO 15 ml BID TUNDE Administration Furosemide 20 mg 02/05/17 07:00 02/05/17 07:42 Lasix Inj 20mg Vial IVP 20 mg BIDDIURETIC TUNDE Administration Hydromorphone HCl 0.5 mg 02/04/17 14:37 02/05/17 04:39 Dilaudid Inj IVP 0.5 mg Q2HR PRN Administration Pain 8 to 10 Levofloxacin 50 mls @ 50 mls/hr 02/04/17 17:00 02/04/17 16:43 Levaquin 250 Mg/50 Ml IV 50 mls/hr Q24H TUNDE Administration Norepinephrine Bitartrate 8 mg 250 mls @ 15 mls/hr 02/04/17 19:12 02/05/17 00: 00 / Dextrose IV 4 mcg/min .[id number] TUNDE Titration Protocol 8 MCG/MIN Ipratropium [place] 0.5 mg 02/04/17 14:37 02/04/17 20:45 Atrovent INH 0.5 mg Q6HR PRN Administration Wheezing Pantoprazole Sodium 40 mg 02/04/17 15:00 02/05/17 07:42 Protonix IVP 40 mg QDAC TUNDE Administration Sodium Chloride 10 ml 02/04/17 14:37 02/05/17 05:39 Normal Saline Flush 0.9% IVP 10 ml PRN PRN Administration NEEDED PER PROVIDER ORDERS Sodium Chloride 10 ml 02/04/17 22:00 02/04/17 22:55 Normal Saline Flush 0.9% IVP 10 ml Q8HR TUNDE Administration Warfarin Sodium 1 mg 02/04/17 21:00 02/04/17 22:42 Coumadin PO 1 mg QPM TUNDE Administration - Lab Result Fish Bone Diagrams: 02/05/17 05:35 02/05/17 05:35 - Additional Planning My Orders: My Active Orders 02/04/17 15:45 RT [Nebulizer/MDI Tx.] [RC] .q4prn/q6prn 02/04/17 17:00 levoFLOXacin 250 MG/50 ML [Levaquin 250 mg/50 ml] 50 ml IV Q24H 02/04/17 17:58 Wound Consult MAC [MAC] Routine 02/04/17 21:00 Warfarin [Coumadin] 1 mg PO QPM 02/05/17 07:00 FUROSEMIDE INJ 20mg VIAL [LASIX INJ 20mg VIAL] 20 mg IVP BIDDIURETIC 02/05/17 09:00 Echo Transthoracic Complete [ECHO] Routine Aspirin Chewable [[place] Aspirin] 81 mg PO DAILY 02/05/17 09:19 Dextrose 50% Abboject [Dextrose] 25 ml IVP ONCE ONE 02/05/17 10:00 Dextrose 5%-0.9% NaCl [D5ns] 1,000 ml IV TKO 02/05/17 14:00 BMP - BASIC METABOLIC PANEL [CHEM] Timed Subjective - Subjective Patient Reports: Shortness of Breath Nursing Reports: Sedated, Shortness of Breath Objective Vital Signs: Vital Signs - 24 hr 02/04/17 02/04/17 02/04/17 14:45 15:00 15:45 Temperature 35.3 C L Heart Rate 63 62 Heart Rate [ 69 Monitoring electrodes] Respiratory 20 22 15 Rate Blood Pressure 80/54 L 98/64 Blood Pressure 69/60 L [Right Brachial artery] O2 Saturation 98 100 97 02/04/17 02/04/17 02/04/17 17:00 17:30 18:00 Temperature Heart Rate 70 Heart Rate [ 74 67 Monitoring electrodes] Respiratory 18 20 Rate Blood Pressure Blood Pressure 71/54 L 83/40 L [Right Brachial artery] O2 Saturation 97 02/04/17 02/04/17 02/04/17 18:17 19:00 19:30 Temperature Heart Rate 63 73 Heart Rate [ 65 Monitoring electrodes] Respiratory 20 15 Rate Blood Pressure 86/62 L Blood Pressure 90/59 L [Right Brachial artery] O2 Saturation 97 02/04/17 02/04/17 02/04/17 20:45 20:56 21:00 Temperature Heart Rate 75 Heart Rate [ 85 72 Monitoring electrodes] Respiratory 16 22 Rate Blood Pressure Blood Pressure 101/85 H 109/86 H [Right Brachial artery] O2 Saturation 100 02/04/17 02/04/17 02/04/17 21:30 21:40 22:00 Temperature 95.4 C H Heart Rate 82 Heart Rate [ 68 84 Monitoring electrodes] Respiratory 24 Rate Blood Pressure Blood Pressure 107/49 L 107/66 [Right Brachial artery] O2 Saturation 100 02/04/17 02/04/17 02/05/17 23:00 23:30 00:00 Temperature 95.4 C H Heart Rate 86 Heart Rate [ 80 90 Monitoring electrodes] Respiratory 18 22 Rate Blood Pressure Blood Pressure 103/58 L 116/55 L [Right Brachial artery] O2 Saturation 100 98 02/05/17 02/05/17 02/05/17 01:00 01:30 02:00 Temperature Heart Rate 92 Heart Rate [ 90 96 Monitoring electrodes] Respiratory 18 22 Rate Blood Pressure Blood Pressure 98/67 111/78 [Right Brachial artery] O2 Saturation 100 100 02/05/17 02/05/17 02/05/17 03:00 03:30 04:00 Temperature Heart Rate 89 Heart Rate [ 93 96 Monitoring electrodes] Respiratory 20 20 Rate Blood Pressure Blood Pressure 98/81 H 87/54 L [Right Brachial artery] O2 Saturation 98 94 02/05/17 02/05/17 02/05/17 05:00 05:30 06:00 Temperature Heart Rate 100 Heart Rate [ 110 H 100 Monitoring electrodes] Respiratory 20 20 Rate Blood Pressure Blood Pressure 119/85 H 131/95 H [Right Brachial artery] O2 Saturation 95 94 02/05/17 02/05/17 02/05/17 07:00 07:30 08:00 Temperature 97.0 C H Heart Rate 97 Heart Rate [ 101 H 106 H Monitoring electrodes] Respiratory 23 20 Rate Blood Pressure Blood Pressure 97/55 L 83/53 L [Right Brachial artery] O2 Saturation 93 90 L 02/05/17 02/05/17 08:46 09:15 Temperature Heart Rate 103 H Heart Rate [ 99 Monitoring electrodes] Respiratory 19 Rate Blood Pressure Blood Pressure 92/60 [Right Brachial artery] O2 Saturation 94 Oxygen O2 Source BIPAP I&O (Last 24 Hrs): Intake and Output Totals x24h 02/03/17 02/04/17 02/05/17 23:59 23:59 23:59 Intake Total 1405 1039 Output Total 18 17 Balance 1387 1022 General: Alert, Moderate distress HEENT: PERRLA, EOMI Neck: No JVD, No thyromegaly Neuro: Alert, Disoriented Cardiovascular: Regular rate Respiratory: Rales, Rhonchi Extremities: No clubbing - Results Results: Laboratory Results WBC 7.7 x10^3/uL (4.8-10.8) 02/05/17 05:35 RBC 4.03 10^6/uL (4.20-5.40) L 02/05/17 05:35 Hgb 10.7 g/dL (12.0-16.0) L 02/05/17 05:35 Hct 35.3 % (37.0-47.0) L 02/05/17 05:35 MCV 87.5 fL (81.0-99.0) 02/05/17 05:35 MCH 26.6 pg (27.0-31.0) L 02/05/17 05:35 MCHC 30.4 g/dL (32.0-36.0) L 02/05/17 05:35 RDW 20.0 % (12.0-15.0) H 02/05/17 05:35 Plt Count 220 10^3/uL (130-450) 02/05/17 05:35 MPV 8.4 fL (7.9-10.8) 02/05/17 05:35 Neut # 6.7 10^3/uL (1.5-6.6) H 02/05/17 05:35 Lymph # 0.2 10^3/uL (1.5-3.5) L 02/05/17 05:35 Foard # 0.7 10^3/uL (0.0-1.0) 02/05/17 05:35 Eos # 0.0 10^3/uL (0.0-0.7) 02/05/17 05:35 Baso # 0.0 10^3/uL (0.0-0.1) 02/05/17 05:35 Absolute Nucleated RBC 0.03 x10^3/uL 02/05/17 05:35 Nucleated RBCs 0.4 /100WBC 02/05/17 05:35 PT 29.6 secs (9.9-12.6) H 02/05/17 05:35 INR 2.6 (0.8-1.2) H 02/05/17 05:35 Sodium 136 mmol/L (135-145) 02/05/17 05:35 Potassium 6.3 mmol/L (3.5-5.0) H* 02/05/17 05:35 Chloride 105 mmol/L (101-111) 02/05/17 05:35 Carbon Dioxide 22 mmol/L (21-32) 02/05/17 05:35 Anion Gap 9.0 (6-13) 02/05/17 05:35 BUN 64 mg/dL (6-20) H 02/05/17 05:35 Creatinine 2.2 mg/dL (0.4-1.0) H 02/05/17 05:35 Estimated GFR (MDRD) 21 (>89) L 02/05/17 05:35 Glucose 83 mg/dL (70-100) 02/05/17 05:35 Calcium 8.6 mg/dL (8.5-10.3) 02/05/17 05:35 Phosphorus 4.5 mg/dL (2.5-4.6) 02/05/17 05:35 Magnesium 2.0 mg/dL (1.7-2.8) 02/05/17 05:35 Total Bilirubin 1.4 mg/dL (0.2-1.0) H 02/05/17 05:35 AST 1152 IU/L (10-42) H 02/05/17 05:35 ALT 516 IU/L (10-60) H 02/05/17 05:35 Alkaline Phosphatase 92 IU/L (42-121) 02/05/17 05:35 Troponin I 0.15 ng/mL (<0.49) 02/04/17 20:32 B-Natriuretic Peptide 4122 pg/mL (5-100) H 02/04/17 11:40 Total Protein 5.7 g/dL (6.7-8.2) L 02/05/17 05:35 Albumin 2.8 g/dL (3.2-5.5) L 02/05/17 05:35 Globulin 2.9 g/dL (2.1-4.2) 02/05/17 05:35 Albumin/Globulin Ratio 1.0 (1.0-2.2) 02/05/17 05:35 Lipase 41 U/L (22-51) 02/04/17 13:41 Urine Color YELLOW 02/04/17 13:21 Urine Clarity CLOUDY (CLEAR) 02/04/17 13:21 Urine pH 6.5 PH (5.0-7.5) 02/04/17 13:21 Ur Specific [place] 1.015 (1.002-1.030) 02/04/17 13:21 Urine Protein 100 mg/dL (NEGATIVE) H 02/04/17 13:21 Urine Glucose (UA) NEGATIVE mg/dL (NEGATIVE) 02/04/17 13:21 Urine Ketones NEGATIVE mg/dL (NEGATIVE) 02/04/17 13:21 Urine Occult Blood LARGE (NEGATIVE) H 02/04/17 13:21 Urine Nitrite NEGATIVE (NEGATIVE) 02/04/17 13:21 Urine Bilirubin NEGATIVE (NEGATIVE) 02/04/17 13:21 Urine Urobilinogen 0.2 (NORMAL) E.U./dL (NORMAL) 02/04/17 13:21 Ur Leukocyte Esterase MODERATE (NEGATIVE) H 02/04/17 13:21 Ur Microscopic Review NOT INDICATED 02/04/17 13:21 Urine Culture Comments INDICATED 02/04/17 13:21
[2017-02-05] MEDS ORDERED: DEXTROSE 5%-0.9% NACL 1,000 ML IV SCH (10:00)
[2017-02-05] MEDS: CHLORHEXIDINE GLUCONATE 15 ML UDC PO SCH (11:54)
[2017-02-05] MEDS: SODIUM CHLORIDE FLUSH 0.9% 10 ML SYRINGE IVP SCH ×2 (13:29→21:36)
[2017-02-05 14:32] LABS: CALCIUM 8.6 mg/dL (8.5-10.3); CREATININE 2.6 mg/dL (0.4-1.0)
[2017-02-05 14:33] LABS: POTASSIUM 6.3 mmol/L (3.5-5.0)
[2017-02-05 19:58] VITALS: BP 87/55
[2017-02-05] MEDS ORDERED: ONDANSETRON 4 MG/2 ML VIAL IVP PRN (20:04)
[2017-02-05] MEDS ORDERED: GLYCOPYRROLATE 1 MG/5 ML VIAL SUBQ PRN (20:04)
[2017-02-05] MEDS ORDERED: ACETAMINOPHEN 650 MG SUPP PR PRN (20:04)
--- NOTE | 2017-02-05 20:17 | ADVANCE CARE PLANNING NOTE ---
Advance Care Planning - Date/Time Date: 02/05/17 Time: 20:05 - Purpose of encounter Text: To discuss end-of-life care, prognosis is poor for survival. - Parties in attendance Parties in attendance: Two daughters and I spoke in hallway, outside of patient's room. - Decisional capacity Decisional capacity of: The patient is intermittently obtunded and also has dementia. She has spoken intermittently with her daughters. The daughters have agreed that the patient should be transferred to [facility]. - Subjective/Patient's story Subjective/Patient's story: The patient was found unresponsive at the facility, found to have agonal heart rhythm and was rescusitated by EMS, brought to ER and admitted to ICU yesterday. She has been intermittently awake, and is SOB but has no c/o pain when responding. - Objective/Medical story Objective/Medical Story: The patient survived a cardiac arrest yesterday, was put on BIPAP, not intubated (as per previously signed wishes). She has a CVP line and required Levophed and fluids to support her BP. Her labs now show evidence of shock liver , worsening renal failure and pulmonary edema on CXR. Her likelihood of recovering is negligible. The patient's two daughters are her closest of kin, and now wish that the patient be placed in [facility]. I reviewed the protocol of medications used and overall plan for [facility] and they are in agreement with proceeding. - Plan Plan: The protocol for [facility] will be followed (no BP checks or telemetry, no blood tests). The patient will have management of pain and SOB and excessive airway secretions. Her iv access will be left in place for administering iv pain meds, also nausea, anxiety and delirium meds. - Code Status Code Status: Do Not Attempt Resuscitation - Time Spent on Advance Care Planning Time spent on advance care plannin minutes
[2017-02-05] MEDS ORDERED: SCOPOLAMINE PATCH TOP SCH (21:00)
--- NOTE | 2017-02-06 03:51 | DISCHARGE SUMMARY ---
DATE OF ADMISSION: 02/04/2017 DATE OF DISCHARGE: Pt on 02/05/17 This is an 86-year-old white female with a history of coronary disease with bypass surgery in 2012, COPD, type 2 diabetes, hypertension, hyperlipidemia, CHF (unknown type), chronic atrial fibrillation, chronic kidney disease. HOSPITAL COURSE: The patient was admitted with a cardiac arrest, when the patient was found unresponsive and a family member called EMS. She was found to be in bradycardic agonal rhythm and received transcutaneous pacing with appropriate capture and started on oxygen therapy. In the emergency room, she had a spontaneous rhythm, was hyperkalemic, which was treated, and she was put on BiPAP and supplemental oxygen. There was discussion with family members regarding her wishes and she actually had a DNR and DNI in place previously. Therefore, NO INTUBATION was done. The patient was placed in the ICU with aggressive treatment for shock using Levophed. She was on Levaquin for a UTI and she was on BiPAP plus supplemental oxygen and getting gentle diuresis for pulmonary edema. The patient had intermittent states of complete arousal and then would be obtunded and throughout the course was requiring BiPAP supplemental oxygen for maintaining saturations over 90%. On the day after admission, she had evidence of shock liver with liver tests increasing from the 200 range to the 1000 range. She had mild worsening of her chronic kidney disease with creatinine from 2.0 to 2.3. She continued to have hypotension requiring Levophed. She was unable to take p.o. diet adequately because of the need for supplemental oxygen via BIPAP mask. There were more frequent times of being obtunded. Two daughters were the closest of kin and decided that the patient should be transferred to comfort care, which was done at approximately 8 p.m. on 02/05/2017. Her Levophed was weaned to off and her oxygen continued, CVP line was left in place in order to administer any necessary morphine or other sedatives, pain medications, antiemetics or give supplemental treatment for shortness of breath. The patient did not survive and was pronounced as respirations had ceased at 11:31 p.m. DISCHARGE DIAGNOSES: 1. Cardiopulmonary arrest, status post resuscitation. 2. Pulmonary edema. 3. Shock. 4. Shock liver. 5. Chronic kidney disease. 6. Congestive heart failure. 7. Chronic obstructive pulmonary disease. 8. Coronary artery disease with bypass surgery in the past. 9. Diabetes. 00:9:00 JOB #: [id number] EXT JOB #:[id number] NANCY
[2017-02-06] MEDS: SODIUM CHLORIDE FLUSH 0.9% 10 ML SYRINGE IVP SCH (06:21)
== END 2017-02-05 23:31 | disposition expired | DRG 296 ==
LOC: EDUNIT# → ED 11:29 → ICU 14:37
PROVIDERS: ADMIT Internal Medicine; ATTEND Internal Medicine
PROC: 02HV33Z Insertion of Infusion Device into Superior Vena Cava, Percutaneous Approach (ICD-10-PCS; principal; 2017-02-04)
DX: R00.1 Bradycardia, unspecified (principal); I46.9 Cardiac arrest, cause unspecified; K72.00 Acute and subacute hepatic failure without coma; J96.21 Acute and chronic respiratory failure with hypoxia; I48.91 Unspecified atrial fibrillation; E11.649 Type 2 diabetes mellitus with hypoglycemia without coma; I13.0 Hypertensive heart and chronic kidney disease with heart failure and stage 1 through stage 4 chronic kidney disease, or unspecified chronic kidney disease; N39.0 Urinary tract infection, site not specified; G47.30 Sleep apnea, unspecified; I25.2 Old myocardial infarction; Z79.899 Other long term (current) drug therapy; R57.9 Shock, unspecified; Z87.01 Personal history of pneumonia (recurrent); Z86.19 Personal history of other infectious and parasitic diseases; E87.5 Hyperkalemia; I50.9 Heart failure, unspecified; N18.9 Chronic kidney disease, unspecified; E11.22 Type 2 diabetes mellitus with diabetic chronic kidney disease; I48.2 Chronic atrial fibrillation; J44.9 Chronic obstructive pulmonary disease, unspecified; I27.2 Other secondary pulmonary hypertension; I34.0 Nonrheumatic mitral (valve) insufficiency; I25.10 Atherosclerotic heart disease of native coronary artery without angina pectoris; K21.9 Gastro-esophageal reflux disease without esophagitis; I73.9 Peripheral vascular disease, unspecified; E78.5 Hyperlipidemia, unspecified; Z66 Do not resuscitate; Z95.1 Presence of aortocoronary bypass graft; Z79.82 Long term (current) use of aspirin; Z79.01 Long term (current) use of anticoagulants; Z87.891 Personal history of nicotine dependence; Z88.0 Allergy status to penicillin; Z88.1 Allergy status to other antibiotic agents
CPT/HCPCS: 36415; 51702; 70450; 71010; 74000; 80048; 80053; 81001; 81003; 82803; 83690; 83735; 83880; 84100; 84484; 85025; 85610; 87077; 87086; 87150; 92953; 93005; 94640; 94660; 96361; 96374; 96375; 99284; 99291; 99292